=== PATIENT | female | born 2000 | race Caucasian/White ===

== ENCOUNTER 2018-02-08 18:24 | Emergency (ER) | payer OTHER ==
--- NOTE | 2018-02-08 19:55 | EDPHY ---
H & P Stated Complaint: UPPER ABD PAIN/NAUSEA X 1 WEEK Time Seen by Provider: 02/08/18 19:54 HPI/ROS: HPI: This is a 17-year-old female who presents with Chief Complaint: UPPER ABD PAIN/NAUSEA X 1 WEEK Location: Upper abdomen Quality: Pain and nausea Duration: 1 week Signs and Symptoms: no fever, + nausea, no vomiting, no hematemesis, no blood in stool, no abdominal bloating, no diarrhea, no back pain, no urinary symptoms , no vaginal bleeding/discharge, no indigestion, no chest pain, no shortness of breath Timing: Acute, daily Severity: [id number] Context: Patient is a student at [employer] presents with complaints of upper abdominal cramping pain that is nonradiating in nature accompanied by nausea over the last 1 week. She reports decreased appetite. She does drink alcohol "on the weekends" and took ibuprofen prior to arrival. Patient reports that she started to get migraines last year when she started school. The last 4 days she has been complaining of a headache that is typical for her and not the worst of her life. Her headache upper abdominal discomfort and nausea started around the same time. She denies any fever, urinary symptoms , stick neck, aura, vision changes, diarrhea, vomiting. Last bowel movement 2 days ago. Modifying Factors: None Comment: ROS: A comprehensive 10 system review of systems is otherwise negative aside from elements mentioned in the history of present illness. MEDICAL/SURGICAL/SOCIAL HISTORY: Medical history: Depression. Extended control pill. Surgical history: Denies Social history: Denies drug and tobacco use. Family history noncontributory. CONSTITUTIONAL: Extremely well-appearing teenage white female, awake and alert , no obvious distress HEENT: Atraumatic and normocephalic, PERRL, EOMI. Nares patent; no rhinorrhea; no nasal mucosal edema. Tympanic membranes clear. Oropharynx clear, no exudate and moist pink mucosa. Airway patent. No lymphadenopathy. No meningismus. Cardiovascular: Normal S1/S2, regular rate, regular rhythm, without murmur rub or gallop. PULMONARY/CHEST: Symmetrical and nontender. Clear to auscultation bilaterally. Good air movement. No accessory muscle usage. ABDOMEN: Soft, nondistended, mild generalized nonspecific tenderness, no rebound, no guarding, no peritoneal signs, no masses or organomegaly. No CVAT. Bowel sounds heard x4 quadrants. EXTREMITIES: 2/2 pulses, strength 5/5, no deformities, no clubbing, no cyanosis or edema. NEUROLOGICAL: no focal neuro deficits. GCS 15. SKIN: Warm and dry, no erythema. no rash. Good capillary refill. Source: Patient Exam Limitations: No limitations - Personal History LMP (Females 10-55): Extended Cycle BCP/Inj Current Tetanus Diphtheria and Acellular Pertussis (TDAP): Yes - Medical/Surgical History Hx Asthma: No Hx Chronic Respiratory Disease: No Hx Diabetes: No Hx Cardiac Disease: No Hx Renal Disease: No Hx Cirrhosis: No Hx Alcoholism: No Hx HIV/AIDS: No Hx Splenectomy or Spleen Trauma: No Other PMH: DENIES - Social History Smoking Status: Never smoked Constitutional: Initial Vital Signs Temperature (C) 36.6 C 02/08/18 18:36 Heart Rate 82 02/08/18 18:36 Respiratory Rate 18 02/08/18 18:36 Blood Pressure 139/83 H 02/08/18 18:36 O2 Sat (%) 100 02/08/18 18:36 O2 Delivery Mode Room Air Allergies/Adverse Reactions: No Known Allergies Allergy (Unverified 02/08/18 18:35) Home Medications: Medication Instructions Recorded Acet/Caffeine/Buta Fioricet 1 each PO Q6 PRN #12 tab 02/08/18 [Fioricet (*)] Lexapro 02/08/18 Ondansetron Odt [Zofran Odt 4 mg 4 mg PO Q4 PRN #12 tab 02/08/18 (*)] Promethazine HCl [Phenergan 12.5mg 12.5 mg PO Q6 PRN #10 tablet 02/08/18 tab] Taytulla 1 mg-20 Mcg Capsule 02/08/18 VYVANSE 02/08/18 Medical Decision Making - Diagnostics Imaging Results: Imaging Impressions Abdomen X-Ray 02/08/18 19:57 Impression: Constipation. Otherwise normal exam. Abdomen Ultrasound 02/08/18 19:58 Impression: Normal. No cholelithiasis, biliary dilation, hydronephrosis, or free fluid. Findings discussed with the emergency department physician veterinary technician assistant, Janel Aldana PA-C on February 08, 2018 at 2054 hours. ED Course/Re-evaluation: Vital signs reviewed and stable upon arrival. No systemic signs. IV access and laboratory studies including abdominal x-ray and right upper quadrant ultrasound ordered Given 1 L normal saline, IV Decadron, IV Toradol, IV Benadryl, IV promethazine 2100: Called by Dr. Peña, radiology, who advised that right upper quadrant ultrasound is completely unremarkable and shows no signs of cholecystitis, stones, fluid. Labs reviewed. No signs of leukocytosis/anemia/platelet dysfunction/ROYCE/ elevated LFTs/electrolyte imbalance/pancreatitis. Abdominal x-ray my read via PAC shows [id number] constipation with nonobstructive bowel gas pattern Reassessed patient who reports near complete relief of symptoms. This patient was seen under the supervision of my secondary supervising physician. I evaluated care for this patient independently. Discussed this patient with Dr. Yepez who did not see the patient. Differential Diagnosis: Abdominal pain including but not limited to appendicitis, cholecystitis, gastritis and urinary tract infection. - Data Points Laboratory Results: Laboratory Results 02/08/18 19:55 02/08/18 19:55 02/08/18 02/08/18 02/08/18 19:55 19:55 19:55 WBC 9.99 10^3/uL H 10^3/uL (3.80-9.50) RBC 4.46 10^6/uL 10^6/uL (4.18-5.33) Hgb 13.1 g/dL g/dL (12.6-16.3) Hct 40.1 % % (38.0-47.0) MCV 89.9 fL fL (81.5-99.8) MCH 29.4 pg pg (27.9-34.1) MCHC 32.7 g/dL g/dL (32.4-36.7) RDW 11.9 % % (11.5-15.2) Plt Count 316 10^3/uL 10^3/uL (150-400) MPV 9.5 fL fL (8.7-11.7) Neut % (Auto) 55.9 % % (39.3-74.2) Lymph % (Auto) 34.2 % % (15.0-45.0) Barron % (Auto) 6.5 % % (4.5-13.0) Eos % (Auto) 2.5 % % (0.6-7.6) Baso % (Auto) 0.7 % % (0.3-1.7) Nucleat RBC Rel Count 0.0 % % (0.0-0.2) Absolute Neuts (auto) 5.58 10^3/uL 10^3/uL (1.70-6.50) Absolute Lymphs (auto) 3.42 10^3/uL H 10^3/uL (1.00-3.00) Absolute Monos (auto) 0.65 10^3/uL 10^3/uL (0.30-0.80) Absolute Eos (auto) 0.25 10^3/uL 10^3/uL (0.03-0.40) Absolute Basos (auto) 0.07 10^3/uL 10^3/uL (0.02-0.10) Absolute Nucleated RBC 0.00 10^3/uL 10^3/uL (0-0.01) Immature Gran % 0.2 % % (0.0-1.1) Immature Gran # 0.02 10^3/uL 10^3/uL (0.00-0.10) Sodium 141 mEq/L mEq/L (135-145) Potassium 4.1 mEq/L mEq/L (3.3-5.0) Chloride 104 mEq/L mEq/L (97-110) Carbon Dioxide 25 mEq/l mEq/l (22-31) Anion Gap 12 mEq/L mEq/L (6-14) BUN 10 mg/dL mg/dL (7-23) Creatinine 0.7 mg/dL mg/dL (0.6-1.0) Estimated GFR > 60 Glucose 96 mg/dL mg/dL (70-100) Calcium 9.8 mg/dL mg/dL (8.5-10.4) Total Bilirubin 0.2 mg/dL mg/dL (0.1-1.4) Conjugated Bilirubin 0.2 mg/dL mg/dL (0.0-0.5) Unconjugated Bilirubin 0.0 mg/dL mg/dL (0.0-1.1) AST 25 IU/L IU/L (14-46) ALT 19 IU/L IU/L (9-52) Alkaline Phosphatase 74 IU/L IU/L (38-126) Total Protein 8.0 g/dL g/dL (6.3-8.2) Albumin 4.7 g/dL g/dL (3.5-5.0) Lipase 101 IU/L IU/L (23-300) Beta HCG, Qual NEGATIVE Medications Given: Discontinued Medications Dexamethasone (Decadron Injection) 8 mg IVP EDNOW ONE Stop: 02/08/18 19:59 Last Admin: 02/08/18 20:13 Dose: 8 mg Diphenhydramine HCl (Benadryl Injection) 25 mg IVP EDNOW ONE Stop: 02/08/18 19:59 Last Admin: 02/08/18 20:10 Dose: 25 mg Sodium Chloride (Ns) 1,000 mls @ 0 mls/hr IV EDNOW ONE; Wide Open PRN Reason: Protocol Stop: 02/08/18 19:58 Last Admin: 02/08/18 20:08 Dose: 1,000 mls Ketorolac Tromethamine (Toradol) 15 mg IVP/IM EDNOW ONE Stop: 02/08/18 19:59 Last Admin: 02/08/18 20:11 Dose: 15 mg Promethazine HCl (Phenergan) 12.5 mg IVP EDNOW ONE Stop: 02/08/18 19:58 Last Admin: 02/08/18 20:08 Dose: 12.5 mg Departure - Departure Disposition: Home, Routine, Self-Care Clinical Impression: Constipation by delayed colonic transit Migraine without aura, not intractable Qualifiers: Status migrainosus presence: without status migrainosus Qualified Code(s): G43.009 - Migraine without aura, not intractable, without status migrainosus Condition: Good Instructions: Constipation (ED), Acute Headache (ED), Acute Abdominal Pain (ED) Additional Instructions: Ultrasound today showed a normal gallbladder. Abdominal x-ray today showed mild constipation. Rest as much as possible until you are feeling better. Consume a minimum of 8-10 glasses of water or electrolyte fluid replacement drinks that include Gatorade, Powerade, Pedialyte. Eat a bland diet for the next 48 hours and then slowly advance as tolerated. Take Zofran 1 tab every 4 hours as needed for nausea, vomiting. Take Promethazine every 6 hr as needed for nausea and vomiting not relieved by Zofran. Take Fioricet every 6 hr as needed for headache. Referrals: [facility] [Clinic] - 5-7 days, if not improved Prescriptions: Acet/Caffeine/Buta Fioricet [Fioricet (*)] 1 each PO Q6 PRN #12 tab PRN Reason: Headache Ondansetron Odt [Zofran Odt 4 mg (*)] 4 mg PO Q4 PRN #12 tab PRN Reason: Nausea/Vomiting, Use 1st Promethazine HCl [Phenergan 12.5mg tab] 12.5 mg PO Q6 PRN #10 tablet PRN Reason: Nausea/Vomiting, Use 2nd
[2018-02-08] MEDS ORDERED: PROMETHAZINE HCL 25 MG/ML INJ IVP ONE (19:57)
[2018-02-08] MEDS ORDERED: NS 1,000 ML IV ONE (19:57)
[2018-02-08] MEDS ORDERED: KETOROLAC 15 MG/1 ML SDV IVP/IM ONE (19:58)
[2018-02-08] MEDS ORDERED: DEXAMETHASONE 4 MG/ML VIAL IVP ONE (19:58)
[2018-02-08 20:11] LABS: PLATELET COUNT 316 10^3/uL (150-400)
[2018-02-08 22:19] VITALS: BP 125/80
== END 2018-02-08 22:19 | disposition home or self-care (01) ==
DX: K59.01 Slow transit constipation (principal); G43.009 Migraine without aura, not intractable, without status migrainosus; E86.9 Volume depletion, unspecified
CPT/HCPCS: 96374; J1100; J1200; J1885; J2550

== ENCOUNTER → 2018-02-24 | Outpatient (CLI) | payer OTHER | LOC: FIMAGING 11:45 | PROVIDERS: ATTEND Psychiatry & Neurology Neurology | DX: G43.909 Migraine, unspecified, not intractable, without status migrainosus (principal) ==